=== PATIENT | female | born 1965 | race African-American/Black ===

== ENCOUNTER 2018-08-09 11:18 | Inpatient (IN) | payer OTHER ==
[~2018-08-09 11:18] MED LIST: Buffered Lidocaine 0.9% SYRIN* 5 ML/SYR SYRINGE INTRADERM ONE; Dexamethasone IV* 4 MG/ML 1 ML (4 MG) IV SLOW PU ONE
[2018-08-09] MEDS ORDERED: ceFAZolin 1 GM in Dextrose (*) 1 GM/50 ML BAG IVPB ONE (11:26)
[2018-08-09] MEDS ORDERED: Buffered Lidocaine 0.9% SYRIN* 5 ML/SYR SYRINGE ONE (11:26)
[2018-08-09] MEDS ORDERED: Heparin VIAL(*) 5000 UNITS/ML VIAL (FIVE THOUSAND) ONE (11:26)
[2018-08-09] MEDS ORDERED: ceFAZolin 2 GM PREMIX in ORs 2 GM/50 ML BAG IVPB ONE (11:26)
[2018-08-09] MEDS ORDERED: Dexamethasone IV* 4 MG/ML 1 ML (4 MG) ONE ×2 (11:27)
[2018-08-09] MEDS ORDERED: Lidocaine 2% PF * 5 ML VIAL ONE (13:03)
[2018-08-09] MEDS ORDERED: Propofol* 10 MG/ML 20 ML BTL IV PUSH ONE (13:03)
[2018-08-09] MEDS ORDERED: Ketorolac INJ* 30 MG/ML 1 ML VIAL ONE (13:03)
[2018-08-09] MEDS ORDERED: Ondansetron INJ* 2 MG/ML VIAL ONE ×2 (13:03→18:38)
[2018-08-09] MEDS ORDERED: Bupivacaine 0.25% EPI 200,000* 30 ML SDV ONE (13:22)
[2018-08-09] MEDS ORDERED: Methylene Blue 0.5 %* 50 MG/10 ML AMP IV ONE (13:22)
[2018-08-09] MEDS ORDERED: Sugammadex * 200 MG/2 ML VIAL IV PUSH ONE (13:35)
[2018-08-09] MEDS ORDERED: Rocuronium* 10 MG/ML VIAL ONE (13:35)
[2018-08-09] MEDS ORDERED: Midazolam* 1 MG/ML 5 ML VIAL (5 MG) ONE (13:38)
[2018-08-09] MEDS ORDERED: fentaNYL* 50 MCG/ML 5 ML VIAL (250 MCG VIAL) ONE (13:38)
[2018-08-09] MEDS ORDERED: Glycopyrrolate IV* 0.2 MG/ML 1 ML VIAL ONE (13:59)
[2018-08-09] MEDS ORDERED: fentaNYL* 50 MCG/ML 2 ML VIAL (100 MCG VIAL) ONE ×3 (14:22→18:59)
[2018-08-09] MEDS ORDERED: Naloxone* 0.4 MG/ML 1 ML VIAL IV PRN (15:39)
[2018-08-09] MEDS ORDERED: Scopolamine 1.5 mg* PATCH TRANSDERM PRN (15:39)
[2018-08-09] MEDS ORDERED: DiMENhydriNATE IV* 50 MG/ML VIAL IV PUSH PRN (15:39)
[2018-08-09] MEDS ORDERED: Ondansetron INJ* 2 MG/ML VIAL IV PRN ×2 (15:39→18:12)
[2018-08-09] MEDS ORDERED: Acetaminophen ADULT LIQ* 650 MG/20.3 ML UDC PO PRN (18:12)
[2018-08-09] MEDS ORDERED: HYDROmorphone INJ1* 1 MG/ML SYRINGE IV PRN ×2 (18:12)
--- NOTE | 2018-08-09 18:12 | OP ---
Operative Report - Blank - Operative Report Date of Operation: 08/09/18 Note: Brief Operative Note Preop Dx: Morbid Obesity Postop Dx: same Procedure: laparoscopic gastric bypass; Lysis of adhesions Anesthesia: GET Surgeon: Joey Neuro Psych Sales Specialist: SUE Gill Fluids: 2600 ml crystalloid EBL: < 50 ml Specimen: none Drains: none Findings: dictated
[2018-08-09] MEDS ORDERED: Dextrose 50% Syringe 50 ML* 25 GM/50 ML SYRINGE IV PUSH PRN (18:20)
[2018-08-09] MEDS ORDERED: Albuterol HFA INHALER* 8 gm MDI INH PRN (18:24)
[2018-08-09] MEDS ORDERED: DiMENhydriNATE IV* 50 MG/ML VIAL ONE (18:26)
[2018-08-09] MEDS ORDERED: Scopolamine 1.5 mg* PATCH ONE (18:26)
[2018-08-09] MEDS ORDERED: Insulin LISPRO* 1 UNITS UNIT SUBCUT ONE (18:32)
[2018-08-09] MEDS: Insulin LISPRO* 1 UNITS UNIT SUBCUT SCH ×2 (18:33→23:46)
[2018-08-09] MEDS ORDERED: HYDROmorphone INJ1* 1 MG/ML SYRINGE ONE (19:00)
[2018-08-09] MEDS: fentaNYL* 50 MCG/ML 2 ML VIAL (100 MCG VIAL) IV PRN ×2 (19:01→19:20)
[2018-08-09] MEDS: HYDROmorphone INJ1* 1 MG/ML SYRINGE IV PRN ×2 (19:03→19:21)
[2018-08-09] MEDS: Famotidine IV* 10 MG/ML 2 ML (20 mg) IV SLOW PU SCH (22:15)
[2018-08-09] MEDS: Ketorolac INJ* 30 MG/ML 1 ML VIAL IV PRN (22:16)
[2018-08-09] MEDS: Heparin VIAL(*) 5000 UNITS/ML VIAL (FIVE THOUSAND) SUBCUT SCH (22:18)
[2018-08-10] MEDS: Heparin VIAL(*) 5000 UNITS/ML VIAL (FIVE THOUSAND) SUBCUT SCH ×3 (06:07→20:50)
[2018-08-10] MEDS: Insulin LISPRO* 1 UNITS UNIT SUBCUT SCH ×4 (06:08→23:59)
[2018-08-10] MEDS: Ketorolac INJ* 30 MG/ML 1 ML VIAL IV PRN (07:24)
[2018-08-10] MEDS: Famotidine IV* 10 MG/ML 2 ML (20 mg) IV SLOW PU SCH ×2 (08:53→20:49)
--- NOTE | 2018-08-10 10:21 | PN ---
Progress Note - Progress Note Date of Service: 08/10/18 Note: S: POD #1. Doing well. Pain controlled. No N/V. Some throat soreness and phlegm. Ambulating. Dr. Cook was also in to see. She has not yet had her UGI. O: Vital Signs - 8 hr 08/10/18 08/10/18 08/10/18 03:29 07:30 07:37 Temperature 98.7 F 99.2 F Pulse Rate 96 91 Respiratory 16 16 16 Rate Blood Pressure 137/71 148/80 (mmHg) O2 Sat by Pulse 100 97 97 Oximetry Intake and Output Last 24 Hours 08/08/18 08/09/18 08/10/18 08/11/18 06:59 06:59 06:59 06:59 Intake Total 2880 Output Total 970 Balance 1910 Weight 271 lb Intake: IV Fluids 2880 ANCEF 3GMS 100 LR 980 lr 1800 Oral 0 Output: Marquis 970 Other: Estimated Void Medium Gen: NAD; comfortable Heart: reg Lungs: clear Abd: lap sites clean; small amt drainage at RUQ dsg; others dry. +BS. Soft; incisional tenderness as expected. Laboratory Tests 08/09/18 08/09/18 08/09/18 12:01 17:51 23:40 POC Glucose (mg/dL) 123 H 339 H 314 H A: s/p lap gastric bypass, doing well other than hyperglycemia P: discussed w/ Dr. Cook. Will increase sliding scale and add long acting insulin at 1/4 of her usual dose. Start kenny clears once her UGI is done.
--- NOTE | 2018-08-10 11:30 | RAD ---
INDICATION: 1 day postop from Brenda-en-Y gastric bypass. COMPARISON: None. TECHNIQUE: The patient swallowed Gastrografin contrast under fluoroscopic observation. Multiple spot images of the distal esophagus, gastric pouch and Brenda limb obtained. 0.3 minutes fluoroscopy. REPORT AND IMPRESSION: #. Ingested contrast propagates through the small gastric pouch to the Brenda limb and distal without delay. #. No evidence for enteric leak. CPT II Codes: G9500
[2018-08-10] MEDS: HYDROcodone/ACET. 7.5/325 LIQ* 15 ML UDC PO PRN ×2 (15:32→20:48)
[2018-08-10] MEDS ORDERED: Insulin NPH(*) 1 UNITS UNIT SUBCUT SCH (21:00)
[2018-08-10] MEDS: D5W 1/2 NS KCl 20 Meq 1000 ML* 1,000 ML IV SCH (21:00)
--- NOTE | 2018-08-11 04:03 | OP ---
CC: PCP; [facility] OPERATIVE REPORT: DATE OF OPERATION: 08/09/18 DATE OF : 63 SURGEON: Boubacar Cook MD ALTERATION TAILOR APPRENTICE: SUE Ochoa ANESTHESIOLOGIST: Dr. Ackerman. ANESTHESIA: General anesthesia. PRE-OP DIAGNOSES: 1. Clinically severe obesity. 2. Obstructive sleep apnea. POST-OP DIAGNOSES: 1. Clinically severe obesity. 2. Obstructive sleep apnea. OPERATIVE PROCEDURE: Laparoscopic gastric bypass, lysis of adhesions. ESTIMATED BLOOD LOSS: Less than 50 cc. FLUIDS: 2600 cc of crystalloid fluid given. SPECIMENS: None. DRAINS: None. DESCRIPTION OF PROCEDURE: The patient was identified in the preoperative area, she was brought to [facility] operating room, was placed on the operating room table in supine position. Preoperative antibiotic s were given, sequential devices were placed on bilateral lower extremities. General anesthesia was induced and the patient's abdomen was prepped and draped in the standard surgical fashion after a Fol ey catheter was placed. A time-out was performed. Folds of the umbilicus were elevated anteriorly and a Veress needle inserted into the abdominal cavit y which was then allowed to insufflate to a pressure of 15 mmHg. The patient tolerated the insufflati on well. A 12-mm trocar was placed in the upper midline. Laparoscope was inserted through this and there was no evidence of injury from the trocar insertion or from the Veress needle, which was then r emoved. Additional trocars were placed in the following position: A 12 mm and 5 mm in the left upper quadran t, a 12 mm and a 5 mm in the right upper quadrant. Attention was turned towards the omentum, this was adhered to the sigmoid colon. This was taken down with LigaSure device until we could reflect the omentum superiorly. This then allowed us to identify the transverse colon and then the Ligament of Treitz. Approximately 50 cm was counted off from the Ligament of Treitz, grasped a portion of the bowel to the stomach. We then transected this bowel with a 60 mm lyon JULIÁN stapling device. Enterotomy was made on the proximal portion of this. This would become the biliopancreatic limb. We did undercut the mesentery with the LigaSure just proximally 2 cm. Next an approximately 90 cm was counted off as this would become the Brenda limb. Another enterotomy wa s made. The Jejunojejunostomy was created in the standard surgical fashion with a 60 mm lyon JULIÁN stap ling device and reapproximated to common defect with interrupted 2-0 silk sutures in a [id number]-[id number] t fashion. The mesenteric defect was similarly closed. Attention was turned towards the stomach. The mary were placed in a steep reverse Trendelenburg. Stomach was emptied with an OG tube, which was then later removed by the anesthesiologist. A liver retractor was inserted and the liver retractor was placed anterior into the right. This was a large liver, but floppy enough to be moved. It was large. We turned our attention to the gastroesophageal fat pad, which was retracted towards the right lower quadrant. Blunt dissection was carried out at this site to identify the left grayson. There was no mike dence of a hiatal hernia. Next, a retrogastric tunnel was made at the 3rd crossing vessel on the lesser curvature. We stapled the 45 mm lyon JULIÁN stapling device across this and then completed with 2 additional 60 mm JULIÁN stapling device at the sleeve stomach. We did place Endo Clips at the proximal portion. It appeared they we re through the stomach entirely, but this was added for good measure before cutting all together. The stomach pouch and the stomach remnants were and there was no evidence of injury. Stomach pouch appeared appropriate size. We then brought the Brenda limb in apposition to this and sut ured with 2-0 silk sutures taking the antimesenteric portion of the small bowel and suturing it to th e lateral stapled edge of the pouch in a standard fashion. Next, a gastrostomy was made over an Jillian tube and an enterotomy was made. These 2 were matted with a 30-mm lyon JULIÁN stapling device. We utilized just over 2 cm of the device. The anastomosis was wide open and then we reapproximated the common defect with 3-0 PDS sutures in a running fashion starting at each end and tying them in the middle. Additional 2-0 silk suture was use d to imbricate the site as well. Next, methylene blue dye test was performed in a standard fashion after placing the Jillian tube throug h the anastomosis and clamping the Brenda limb. The Brenda limb did become significantly distended. We did pull out a gauze that was placed behind the anastomosis and noted that a small, very pale area bl ue dye. This additional blue dye was suctioned through the Jillian tube, which was then backed into th e stomach. We reviewed the full anastomosis and could not see any area that showed a blue, but mostly this was in the posterior aspect. The more superior 2-0 silk stay suture was cut and this allowed u s to see in this area better. Again, there was no evidence of blue dye, but we shored up the site wi 2-0 silk suture taking the small bowel and suturing it to the posterior stomach pouch. Methylene blue dye test was performed in the same fashion, at this time it was negative. Jillian tube was remove d. Review of the abdomen showed no bleeding, no enteric contents. Review of the jejunojejunostomy sh owed that this was intact without any evidence of ischemia. We then allowed the abdomen to collapse. Trocars were removed under direct vision and all 6 skin incisions were reapproximated with 4-0 [place] cryl subcuticular sutures followed by Steri-Strips and sterile dressing. [id number]/[facility] #: [id number]
[2018-08-11] MEDS: D5W 1/2 NS KCl 20 Meq 1000 ML* 1,000 ML IV SCH ×2 (05:44→15:12)
[2018-08-11] MEDS: Heparin VIAL(*) 5000 UNITS/ML VIAL (FIVE THOUSAND) SUBCUT SCH ×2 (05:53→15:13)
[2018-08-11] MEDS: Insulin LISPRO* 1 UNITS UNIT SUBCUT SCH ×2 (05:53→11:55)
[2018-08-11] MEDS: HYDROcodone/ACET. 7.5/325 LIQ* 15 ML UDC PO PRN (08:00)
[2018-08-11] MEDS: Famotidine IV* 10 MG/ML 2 ML (20 mg) IV SLOW PU SCH (08:02)
[2018-08-11 11:52] VITALS: BP 138/75
== END 2018-08-11 17:40 | disposition home or self-care (01) | DRG 403 ==
LOC: AA 11:18 → SSU 19:54
PROVIDERS: ADMIT Surgery; ATTEND Surgery
PROC: 0D164ZA Bypass Stomach to Jejunum, Percutaneous Endoscopic Approach (ICD-10-PCS; principal; 2018-08-09 12:45)
DX: E66.01 Morbid (severe) obesity due to excess calories (principal); I10 Essential (primary) hypertension; K21.9 Gastro-esophageal reflux disease without esophagitis; G47.33 Obstructive sleep apnea (adult) (pediatric); J45.909 Unspecified asthma, uncomplicated; M19.90 Unspecified osteoarthritis, unspecified site; E11.65 Type 2 diabetes mellitus with hyperglycemia; J02.9 Acute pharyngitis, unspecified; Z72.89 Other problems related to lifestyle; Z90.710 Acquired absence of both cervix and uterus; Z68.41 Body mass index [BMI] 40.0-44.9, adult; Z87.891 Personal history of nicotine dependence; Z23 Encounter for immunization; D57.3 Sickle-cell trait
CPT/HCPCS: 43644; 74246; 90686; A9270-GY; C1776; J0690; J1100; J1170; J1240; J1644; J1885; J2250; J2405; J2704; J3010